=== PATIENT | male | born 1950 | race Caucasian/White ===

== ENCOUNTER → 2020-07-22 14:37 | Outpatient (CLI) | payer MEDICARE, MEDICAID | END | disposition home or self-care (01) | LOC: D.LAB 14:37 | PROVIDERS: ATTEND Thoracic Surgery (Cardiothoracic Vascular Surgery) | DX: Z11.52 Encounter for screening for COVID-19 (principal) ==

== ENCOUNTER → 2020-07-28 09:37 | Outpatient (CLI) | payer MEDICARE, MEDICAID ==
--- NOTE | ~2020-07-28 | EC ---
PATIENT:COLLETTE OROZCO DATE OF SERVICE: 07/28/20 SEX: M MEDICAL RECORD: [id number] DATE OF : 46 LOCATION:[facility] AGE OF PATIENT: 70 ADMISSION DATE: 07/28/20 REFERRING PHYSICIAN: INTERPRETING PHYSICIAN: GABI MOYER MD ECHOCARDIOGRAM REPORT ECHO CHARGES 4 ECHO COMPLETE Date: 07/28/20 CLINICAL DIAGNOSIS: LUNG CANCER, PRE-OP FOR SURGERY, ASSESS EF AND VALVES ECHOCARDIOGRAPHIC MEASUREMENTS (adult normal given) AC root (d.<3.7cm) 4.1 cm LV Septum d (<1.2 cm> 1.4 cm Valve Excursion 1.7 cm LV Septum (systole) 1.7 cm Left Atria (s.<4.0cm> 4.6 cm LVPW d(<1.2cm) 1.6 cm RV (d.<2.3cm) 3.3 cm LVPW (sytole) 1.8 cm LV diastole(<5.6CM) 4.1 cm MV E-F(>70mm/sec) cm LV systole 2.4 cm LVOT Diameter 2.5 cm MV exc.(>10mm) 2.0 cm Est.ejection fraction (50-75%) % DOPPLER: LVIT cm/sec A 74.0 cm/sec E 44.0 cm/sec LA cm/sec RVSP 43 mmHg LVOT 105 cm/sec AOP1/2T m/s Asc. Ao 135 cm/sec RVOT 110 cm/sec RA cm/sec PA 145 cm/sec AV Gradient Peak 7.25 mmHg AV Mean 3.82 mmHg AV Area 3.4 cm MV Gradient Peak 2.77 mmHg MV Mean 1.28 mmHg MV Area cm COMMENTS: [employer] Worker: 2 TERRELL KIRKPATRICK Trimming Caser: 3 Dr. Gallegos TAPE# PACS Pericardial Effusion N DATE OF SERVICE: Adequate 2D, color flow imaging, spectral Doppler, and M-Mode. FINDINGS: Mild LVH. LV internal dimensions are normal. Wall motion is normal. EF is greater than or equal to 55%. Aortic valve is sclerotic. No evidence of stenosis by Doppler interrogation. Left atrium is dilated at 4.6 cm. Mitral valve shows no prolapse. Trivial MR. Ride side is grossly normal. Mild TR. TRANSINT:[id number] Voice Confirmation ID: [id number] DOCUMENT ID: [id number] ECHOCARDIOGRAM REPORT [id number] COLLETTE OROZCO GREGORY A MD CC: [id number] DICTATION DATE: 07/29/2010 BREAD BAKER: 07/29/20 1204 DEP CLI 07/28/20 [place] [id number]
== END | disposition home or self-care (01) ==
LOC: D.RT 09:30
PROVIDERS: ATTEND Thoracic Surgery (Cardiothoracic Vascular Surgery)
DX: C34.90 Malignant neoplasm of unspecified part of unspecified bronchus or lung (principal)

== ENCOUNTER 2020-08-24 06:00 | Day surgery (SDC) | payer MEDICARE, MEDICAID ==
[2020-08-22 12:30] LABS: EOSINOPHILS 1.8 % (0-7); HEMATOCRIT 47.3 % (42.0-54.0); HEMOGLOBIN 15.9 g/dL (13.5-17.5); LYMPHOCYTES 20.7 % (15-50); MCH 31.3 pg (26.0-34.0); MCHC 33.7 g/dL (31.0-37.0); MEAN PLATELET VOLUME 6.3 fL (7.4-10.4); MONOCYTES 5.4 % (2-11); NEUTROPHILS 71.1 % (40-80); PLATELET COUNT 272 10x3/uL (130-400); RBC 5.09 10x6/uL (4.20-6.10); RDW 15.3 % (11.5-14.5); WBC 8.1 10x3/uL (4.8-10.8)
[2020-08-22 12:36] LABS: APTT 30.3 SECONDS (22.8-39.4); INR 1.21 (0.85-1.17); PROTIME 14.2 SECONDS (11.6-15.0)
[2020-08-22 12:39] LABS: CALC OSMOLALITY 268 mosm/kg (275-300); CALCIUM 8.5 mg/dL (8.5-10.1); CARBON DIOXIDE 31.6 mmol/L (21.0-32.0); CHLORIDE - SERUM 100 mmol/L (98-107); CREATININE - SERUM 0.6 mg/dL (0.6-1.3); GLUCOSE 98 mg/dL (74-106); POTASSIUM - SERUM 3.9 mmol/L (3.5-5.1); SODIUM 136 mmol/L (136-145); UREA NITROGEN 5 mg/dL (7-18); eGFR NON AFRICAN AMERICAN > 90 mL/min (90-120)
[~2020-08-24] VITALS: Ht 182.9 cm; Wt 70.3 kg
[~2020-08-24 06:00] MED LIST: AMITIZA24 MCG PO; CYMBALTA30 MG PO; FEXOFENADINE H180 MG PO; FLOMAX0.4 MG PO; FLUTICASONE PRO16 GM NASAL; GAS-X125 M1; HYDROCODON-ACE1 EA10; MUCINEX600 MG; NEURONTIN800 MG PO; OMEPRAZOLE20 M1; OXYCONTIN10 MG; REGLAN10 MG PO; SINGULAIR10 MG; TRAZODONE HCL100 MG PO; VITAMIN B-12100 MCG PO; VITAMIN D325 MC1
[2020-08-24 06:22] VITALS: BP 121/59; Ht 182.9 cm; Wt 70.3 kg
--- NOTE | 2020-08-24 09:16 | NUR ---
SHAYLEE EXP 12/28/21 LOT [id number] REF# [id number]
[2020-08-24] MEDS ORDERED: TYLENOL W/CODEI1 TAB PO (09:44)
--- NOTE | 2020-08-24 18:37 | NUR ---
1110 - IV D/C'D WITH TIP INTACT.
--- NOTE | 2020-08-24 18:38 | NUR ---
1118 - PATIENT UP TO BATHROOM TO VOID AND DRESS FOR DISCHARGE.
--- NOTE | 2020-08-24 18:39 | NUR ---
1145 - PATIENT DISCHARGED VIA WHEELCHAIR TO PRIVATE CAR. DISCHARGE INSTRUCTIONS GIVEN TO PATIENT'S WHILE SHE WAS IN CAR TO PICK PATIENT UP.
== END 2020-08-24 11:45 | disposition home or self-care (01) ==
LOC: D.OPS 06:00
PROVIDERS: Anesthesiology; ATTEND Surgery
DX: C34.90 Malignant neoplasm of unspecified part of unspecified bronchus or lung (principal); R22.0 Localized swelling, mass and lump, head; L98.9 Disorder of the skin and subcutaneous tissue, unspecified; C44.42 Squamous cell carcinoma of skin of scalp and neck